=== PATIENT | male | born 1990 | race Caucasian/White ===

== ENCOUNTER 2021-05-15 15:03 | Emergency (ER) | payer OTHER ==
[2021-05-15 15:16] VITALS: BP 147/87; PULSE 65; TEMP 98; BMI 26.6
== END 2021-05-15 15:46 | disposition home or self-care (01) ==
LOC: JERFT 15:03
PROC: 0HQGXZZ Repair Left Hand Skin, External Approach (ICD-10-PCS; principal; 2021-05-15)
DX: S61.412A Laceration without foreign body of left hand, initial encounter (principal)
CPT/HCPCS: 99282-25

== ENCOUNTER 2021-05-22 07:43 | Emergency (ER) | payer OTHER ==
[2021-05-22 07:59] VITALS: BP 132/73; PULSE 56; TEMP 98.1; BMI 26.5
== END 2021-05-22 08:32 | disposition home or self-care (01) ==
LOC: JER 07:43 → JERFT 07:43
DX: Z48.02 Encounter for removal of sutures (principal)
CPT/HCPCS: 99281-25